=== PATIENT | female | born 1985 ===

== ENCOUNTER 2019-01-02 10:23 | Emergency (ER) | payer BC ==
[2019-01-02 11:42] VITALS: BP 136/80
--- NOTE | 2019-01-02 11:55 | ED ---
Throat Pain/Nasal Congestion - HPI Summary HPI Summary: 33 year old female presents with feeling that is lump in throat since yesterday. She denies eating anything different or any new products. she states that when eats feels like something is there. hurts when swallow. no difficult with secretions. pain is only on right side. no chest pain or SOB. did have dental work done yesterday. not on antibiotics. no sinus congestion or post nasal drip. no cough. no hx of strept. no abdominal pain, nausea or vomiting. no fever. - History of Current Complaint Chief Complaint: UCRespiratory Time Seen by Provider: 01/02/19 11:42 - Allergies/Home Medications Allergies/Adverse Reactions: Allergies Allergy/AdvReac Type Severity Reaction Status Date / Time No Known Allergies Allergy Verified 01/02/19 11:42 Home Medications: Home Medications Apri Control 1 tab PO DAILY 01/02/19 [History Confirmed 01/02/19] PMH/Surg Hx/FS Hx/Imm Hx Endocrine/Hematology History: Denies: Hx Diabetes, Hx Thyroid Disease Cardiovascular History: Denies: Hx Hypertension Respiratory History: Denies: Hx Asthma, Hx Chronic Obstructive Pulmonary Disease (COPD) GI History: Denies: Hx Ulcer - Cancer History Cancer Type, Location and Year: former opiate addiction - Surgical History Surgery Procedure, Year, and Place: appendectomy Infectious Disease History: No Infectious Disease History: Denies: Hx Clostridium Difficile, Hx Hepatitis, Hx Human Immunodeficiency Virus (HIV), Hx of Known/Suspected MRSA, Hx Shingles, Hx Tuberculosis, Hx Known/ Suspected VRE, Hx Known/Suspected VRSA, History Other Infectious Disease, Traveled Outside the [place] in Last 30 Days - Family History Known Family History: Positive: None - Social History Alcohol Use: None Substance Use Type: Reports: None Substance Use Comment - Amount & Last Used: hx of use Smoking Status (MU): Never Smoked Tobacco Type: eCigarettes Amount Used/How Often: 2 cig per day Review of Systems Negative: Fever Positive: Sore Throat Negative: Chest Pain Negative: Shortness Of Breath All Other Systems Reviewed And Are Negative: Yes Physical Exam Triage Information Reviewed: Yes Vital Signs On Initial Exam: Initial Vitals Temp Pulse Resp BP Pulse Ox 98.8 F 80 18 136/80 99 01/02/19 11:37 01/02/19 11:37 01/02/19 11:37 01/02/19 11:37 01/02/19 11:37 Vital Signs Reviewed: Yes Appearance: Positive: Well-Appearing Skin: Positive: Warm, Dry Head/Face: Positive: Normal Head/Face Inspection Eyes: Positive: Normal, EOMI, RUDY, Conjunctiva Clear ENT: Positive: Normal ENT inspection, Pharynx normal, TMs normal, Uvula midline , Other - soft palate symmetric, no difficulty speaking. Negative: Trismus, Muffled voice Neck: Positive: Supple, Tenderness @ - anterior cerivcal lymph node, Enlarged Nodes @ - right anterior cervical Respiratory/Lung Sounds: Positive: Clear to Auscultation, Breath Sounds Present Cardiovascular: Positive: Normal, RRR Abdomen Description: Positive: Nontender, Soft Bowel Sounds: Positive: Present Musculoskeletal: Positive: Normal Neurological: Positive: Normal Psychiatric: Positive: Normal Diagnostics - Vital Signs Vital Signs Temp Pulse Resp BP Pulse Ox 01/02/19 11:37 98.8 F 80 18 136/80 99 - Laboratory Lab Statement: Any lab studies that have been ordered have been reviewed, and results considered in the medical decision making process. - Radiology neck Radiology Interpretation Completed By: Radiologist Summary of Radiographic Findings: IMPRESSION: UNREMARKABLE RADIOGRAPHS OF THE SOFT TISSUES OF THE NECK. EENT Course/Dx - Course Course Of Treatment: 33 year old female presents with feeling that is lump in throat since yesterday. She denies eating anything different or any new products. she states that when eats feels like something is there. hurts when swallow. no difficult with secretions. pain is only on right side. no chest pain or SOB. did have dental work done yesterday. not on antibiotics. no sinus congestion or post nasal drip. no cough. no hx of strept. no abdominal pain, nausea or vomiting. no fever. on exam pharynx normal. manage airway and secretions well. nontoxic. does have isolated lymphadenopathy on right side on anterior cervical chain. xray normal. does not appear to be having an allergic reaction or epiglottis at this time. will treat for lymphadenitis with augmentin. told if develop sob, difficult or inability to swallow to go immediately to ER. will have follow up with primary about blood pressure as is elevated at this time. patient understand and agrees with plan. - Differential Diagnoses Differential Diagnoses: Epiglottitis, Tonsilitis, Other - peritonsillar - Diagnoses Provider Diagnoses: Sensation of lump in throat, Lymphadenitis Discharge - Sign-Out/Discharge Documenting (check all that apply): Patient Departure All imaging exams completed and their final reports reviewed: Yes - Discharge Plan Condition: Good Disposition: HOME Prescriptions: Amoxicillin/Clavulanate TAB* [Augmentin TAB 875*] 875 mg PO BID #14 tab Patient Education Materials: Lymphangitis (ED) Referrals: [facility] [Outside] Additional Instructions: Take augmentin twice a day for 7 days Establish care with primary Go immediately to the ER if develop shortness of breath, difficulty or inability to swallow salvia, fever, or any new or worsening symptoms - Billing Disposition and Condition Condition: GOOD Disposition: Home
== END 2019-01-02 12:32 | disposition home or self-care (01) ==
LOC: UCEAST 10:23
DX: I88.9 Nonspecific lymphadenitis, unspecified (principal)
CPT/HCPCS: 70360; 99212; G0463